=== PATIENT | male | born 1955 | race Caucasian/White ===

== ENCOUNTER 2016-08-31 04:24 | Emergency (ER) | payer MEDICARE ==
[~2016-08-31] VITALS: Ht 177.8 cm; Wt 81.6 kg
[2016-08-31 04:40] VITALS: BP 134/81; PULSE 66; RESP 12; TEMP 97.7; O2SAT 99
--- NOTE | 2016-08-31 04:58 | PD ---
HPI Chief Complaint: GI symptoms Time Seen by Provider: 04:48 Travel History International Travel<30 days: No Contact w/Intl Traveler<30days: No Traveled to known affect area: No History of Present Illness HPI 61-year-old male complains of abdominal pain with nausea vomiting diarrhea. Patient states the symptoms started 2 days ago. Patient states that he was eating chicken sandwich and coleslaw and the symptoms started subsequently. Patient denies any blood or mucus in the stool. Patient denies any blood in the vomitus. Patient states the abdominal pain cramping pain diffuse over the abdomen. Patient denies any pain radiation. Patient denies any fever chills. On a scale of 1-10 the pain is a 10. PFSH Social History Tobacco Use: No Allergies-Medications (Allergen,Severity, Reaction): Coded Allergies: No Known Allergies (Unverified , 08/31/16) Reported Meds & Prescriptions Reported Meds & Active Scripts Active Lomotil (Diphenoxylate-Atropine) 2.5-0.025 Mg Tab 1 Tab PO Q6H PRN Bentyl (Dicyclomine HCl) 10 Mg Cap 10 Mg PO TID PRN Zofran Odt (Ondansetron Odt) 4 Mg Tab 4 Mg SL Q6HR PRN Reported Lipitor (Atorvastatin Calcium) 20 Mg Tab 20 Mg PO HS Hydrocodone-Acetaminophen 10-325 mg Tab 1 Tab PO Q6H PRN Protonix (Pantoprazole Sodium) 20 Mg Tab 20 Mg PO DAILY Topiramate 25 Mg Tab 25 Mg PO DAILY Review of Systems General / Constitutional: No: Fever Eyes: No: Visual changes HENT: No: Headaches Cardiovascular: No: Chest Pain or Discomfort Respiratory: No: Shortness of Breath Gastrointestinal: Positive: Nausea, Vomiting, Diarrhea, Abdominal Pain Genitourinary: No: Dysuria Musculoskeletal: No: Pain Skin: No Rash Neurologic: No: Weakness Psychiatric: No: Depression Endocrine: No: Polydipsia Hematologic/Lymphatic: No: Easy Bruising Physical Exam Narrative GENERAL: Well-nourished, well-developed patient. SKIN: Focused skin assessment warm/dry. HEAD: Normocephalic. EYES: No scleral icterus. No injection or drainage. NECK: Supple, trachea midline. No JVD or lymphadenopathy. CARDIOVASCULAR: Regular rate and rhythm without murmurs, gallops, or rubs. RESPIRATORY: Breath sounds equal bilaterally. No accessory muscle use. GASTROINTESTINAL: Abdomen soft, nondistended. Patient has mild to moderate diffuse tenderness over the abdomen. No rebound tenderness. No mass. Small reducible umbilical hernia noted. MUSCULOSKELETAL: No cyanosis, or edema. BACK: Nontender without obvious deformity. No CVA tenderness. Neurologic exam normal. Data Data Last Documented VS Vital Signs Date Time Temp Pulse Resp B/P Pulse Ox O2 Delivery O2 Flow Rate FiO2 08/31/16 06:27 16 08/31/16 06:26 60 104/66 100 Room Air 08/31/16 05:00 97.7 Orders Complete Blood Count With Diff (08/31/16 04:54) Comprehensive Metabolic Panel (08/31/16 04:54) Prothrombin Time / Inr (Pt) (08/31/16 04:54) Act Partial Throm Time (Ptt) (08/31/16 04:54) Lipase (08/31/16 04:54) Ct Abd/Pel W Iv Contrast(Rout) (08/31/16 04:54) Iv Access Insert/Monitor (08/31/16 04:54) Ecg Monitoring (08/31/16 04:54) Oximetry (08/31/16 04:54) Sodium Chlor 0.9% 1000 Ml Inj (Ns 1000 M (08/31/16 05:00) Pantoprazole Inj (Protonix Inj) (08/31/16 05:00) Ondansetron Inj (Zofran Inj) (08/31/16 05:00) Morphine Inj (Morphine Inj) (08/31/16 05:15) Iohexol 350 Inj (Omnipaque 350 Inj) (08/31/16 06:09) Ketorolac Inj (Toradol Inj) (08/31/16 06:45) Labs Laboratory Tests Test 08/31/16 05:00 White Blood Count 7.4 TH/MM3 Red Blood Count 4.92 MIL/MM3 Hemoglobin 15.5 GM/DL Hematocrit 46.8 % Mean Corpuscular Volume 95.1 FL Mean Corpuscular Hemoglobin 31.5 PG Mean Corpuscular Hemoglobin 33.1 % Concent Red Cell Distribution Width 12.4 % Platelet Count 154 TH/MM3 Mean Platelet Volume 8.5 FL Neutrophils (%) (Auto) 65.3 % Lymphocytes (%) (Auto) 20.0 % Monocytes (%) (Auto) 10.4 % Eosinophils (%) (Auto) 3.9 % Basophils (%) (Auto) 0.4 % Neutrophils # (Auto) 4.8 TH/MM3 Lymphocytes # (Auto) 1.5 TH/MM3 Monocytes # (Auto) 0.8 TH/MM3 Eosinophils # (Auto) 0.3 TH/MM3 Basophils # (Auto) 0.0 TH/MM3 CBC Comment DIFF FINAL Differential Comment Prothrombin Time 11.4 SEC Prothromb Time International 1.0 RATIO Ratio Activated Partial 26.6 SEC Thromboplast Time Sodium Level 143 MEQ/L Potassium Level 3.9 MEQ/L Chloride Level 112 MEQ/L Carbon Dioxide Level 21.8 MEQ/L Anion Gap 9 MEQ/L Blood Urea Nitrogen 16 MG/DL Creatinine 1.20 MG/DL Estimat Glomerular Filtration 61 ML/MIN Rate Random Glucose 114 MG/DL Calcium Level 8.7 MG/DL Total Bilirubin 0.7 MG/DL Aspartate Amino Transf 11 U/L (AST/SGOT) Alanine Aminotransferase 21 U/L (ALT/SGPT) Alkaline Phosphatase 76 U/L Total Protein 7.3 GM/DL Albumin 3.6 GM/DL Lipase 219 U/L MDM Medical Decision Making Medical Screen Exam Complete: Yes Emergency Medical Condition: Yes Interpretation(s) 6:32 AM. CBC within normal limit. CMP within normal limit. Differential Diagnosis Differential diagnosis including gastroenteritis, gastritis, PUD, pancreatitis, cholecystitis, colitis, UTI, pyelonephritis. Narrative Course 61-year-old male abdominal pain, nausea vomiting diarrhea. Normal saline solution 1 L IV bolus. Zofran 4 mg IV. Morphine 2 mg IV. Protonix 40 mg IV. Diagnosis Primary Impression: Gastroenteritis Patient Instructions: General Instructions Additional Instructions: Take medications as directed. Clear fluids today and advance diet as tolerated. Follow-up with personal physician. Return if persistent problem or worse. Med/Other Pt SpecificInfo: Prescription(s) given Scripts Diphenoxylate-Atropine (Lomotil)2.5-0.025 Mg Tab1 Tab PO Q6H PRN (DIARRHEA) #12 TAB Ref 0 Prov:Mike Loomis MD 08/31/16 Dicyclomine (Bentyl)10 Mg Cap10 Mg PO TID PRN (PAIN SCALE 1 TO 10) #15 CAP Ref 0 Prov:Mike Loomis MD 08/31/16 Ondansetron Odt (Zofran Odt)4 Mg Tab4 Mg SL Q6HR PRN (Nausea/Vomiting) #10 TAB Prov:Mike Loomis MD 08/31/16 Disposition: 01 DISCHARGE HOME Condition: Stable Mike Loomis MD Aug 31, 2016 04:58
[2016-08-31 05:00] VITALS: TEMP 97.7
[2016-08-31] MEDS ORDERED: SODIUM CHLOR 0.9% 1000 ML INJ 1,000 ML IV ONE (05:00)
[2016-08-31] MEDS ORDERED: ONDANSETRON HCL 4 MG/2 ML VIAL IV PUSH ONE (05:00)
[2016-08-31] MEDS ORDERED: PANTOPRAZOLE SODIUM 40 MG VIAL IV PUSH ONE (05:00)
[2016-08-31] MEDS ORDERED: MORPHINE SULFATE 4 MG/ML INJ IV PUSH ONE (05:00)
[2016-08-31 05:15] VITALS: BP 118/81; PULSE 60; RESP 16; O2SAT 98
[2016-08-31] MEDS ORDERED: MORPHINE SULFATE 8 MG/ML INJ IV PUSH ONE (05:15)
[2016-08-31 05:24] LABS: AUTOMATED NEUTROPHIL # 4.8 TH/MM3 (1.8-7.7); BASOPHIL % 0.4 % (0.0-2.0); EOSINOPHIL # 0.3 TH/MM3 (0-0.4); EOSINOPHIL % 3.9 % (0.0-4.0); HEMATOCRIT 46.8 % (39.0-51.0); HEMO FLAGS DIFF FINAL; LYMPHOCYTE # 1.5 TH/MM3 (1.0-4.8); MEAN CELL VOLUME 95.1 FL (80.0-100.0); MEAN CORPUSCULAR HEMOGLOBIN 31.5 PG (27.0-34.0); MEAN CORPUSCULAR HGB CONC 33.1 % (32.0-36.0); MONO % 10.4 % (0.0-8.0); NEUT % 65.3 % (16.0-70.0); PLATELET COUNT 154 TH/MM3 (150-450); RED BLOOD COUNT 4.92 MIL/MM3 (4.50-5.90); RED CELL DISTRIBUTION WIDTH 12.4 % (11.6-17.2); WHITE BLOOD COUNT 7.4 TH/MM3 (4.0-11.0)
[2016-08-31 05:32] LABS: CHLORIDE 112 MEQ/L (98-107); POTASSIUM 3.9 MEQ/L (3.5-5.1); SODIUM (NA) 143 MEQ/L (136-145)
[2016-08-31 05:36] LABS: ANION GAP 9 MEQ/L (5-15); APTT (PATIENT) 26.6 SEC (24.3-30.1); BICARBONATE 21.8 MEQ/L (21.0-32.0); BLOOD UREA NITROGEN 16 MG/DL (7-18); PROTHROMBIN TIME - PATIENT 11.4 SEC (9.8-11.6)
[2016-08-31 05:39] LABS: ALT (GPT) 21 U/L (12-78); AST (GOT) 11 U/L (15-37); GLOMERULAR FILTRATION RATE 61 ML/MIN (>89)
[2016-08-31 05:40] LABS: TOTAL BILIRUBIN ADULT 0.7 MG/DL (0.2-1.0)
[2016-08-31] MEDS ORDERED: HYDR-3583 PO (05:41)
[2016-08-31] MEDS ORDERED: TOPI1TAB97 PO (05:41)
[2016-08-31] MEDS ORDERED: LIPI20TA PO (05:41)
[2016-08-31] MEDS ORDERED: PANT20 PO (05:41)
[2016-08-31 05:42] LABS: ALKALINE PHOSPHATASE 76 U/L (45-117)
[2016-08-31] MEDS ORDERED: IOHEXOL 350 MG/ML 10 ML VIAL (for RAD DIAG) IV ONE (06:09)
[2016-08-31 06:26] VITALS: BP 104/66; PULSE 60; RESP 16; O2SAT 100
--- NOTE | 2016-08-31 06:30 | RADRPT ---
EXAM DATE/TIME: 08/31/2016 05:46 [facility] COMPARISON: No previous studies available for comparison. INDICATIONS : Abdominal pain. Vomiting. Diarrhea. IV CONTRAST: 75 cc Omnipaque 350 (iohexol) IV ORAL CONTRAST: No oral contrast ingested. RADIATION DOSE: 14.19 CTDIvol (mGy) MEDICAL HISTORY : None SURGICAL HISTORY : Nephrectomy, left. ENCOUNTER: Initial ACUITY: 2 days PAIN SCALE: 10/10 LOCATION: Bilateral lower quadrant anterior TECHNIQUE: Volumetric scanning of the abdomen and pelvis was performed. Using automated exposure control and ad justment of the mA and/or kV according to patient size, radiation dose was kept as low as reasonably achievable to obtain optimal diagnostic quality images. DICOM format image data is available electro nically for review and comparison. FINDINGS: LOWER LUNGS: The visualized lower lungs are clear. LIVER: Homogeneous density without lesion. There is no dilation of the biliary tree. No calcified gallston es. SPLEEN: Normal size without lesion. Numerous granuloma PANCREAS: Within normal limits. KIDNEYS: Status post left nephrectomy without residual mass. ADRENAL GLANDS: Within normal limits. VASCULAR: There is no aortic aneurysm. BOWEL/MESENTERY: The stomach, small bowel, and colon demonstrate no acute abnormality. There is no free intraperitone al air or fluid. ABDOMINAL WALL: Within normal limits. RETROPERITONEUM: There is no lymphadenopathy. BLADDER: No wall thickening or mass. REPRODUCTIVE: Within normal limits. INGUINAL: There is no lymphadenopathy or hernia. MUSCULOSKELETAL: Within normal limits for patient age. CONCLUSION: Normal examination status post left nephrectomy. Amador Delgado MD on August 31, 2016 at 6:27 Board Certified Radiologist. This report was verified electronically.
[2016-08-31] MEDS ORDERED: LOMO2.5T PO (06:40)
[2016-08-31] MEDS ORDERED: DICY10 PO (06:40)
[2016-08-31] MEDS ORDERED: ZOFR4TAB3 SL (06:40)
[2016-08-31] MEDS ORDERED: KETOROLAC TROMETHAMINE 30 MG/ML (IVP) VIAL IV PUSH ONE (06:45)
== END 2016-08-31 06:59 | disposition home or self-care (01) ==
LOC: PHED 04:24
DX: K52.9 Noninfective gastroenteritis and colitis, unspecified (principal)
CPT/HCPCS: 74177; 80053; 83690; 85025; 85610; 85730; 96361; 96374; 96375; 99285; C9113; J1885; J2270; J2405; J7030; Q9967